=== PATIENT | female | born 1990 | race Caucasian/White ===

== ENCOUNTER 2017-05-19 06:00 | Inpatient (IN) | payer BC ==
[2017-05-19] MEDS ORDERED: OXYTOCIN 10 UNIT/ML 1 ML VIAL IM PRN (06:18)
[2017-05-19] MEDS ORDERED: METHYLERGONOVINE 0.2 MG/ML 1 ML AMP IM PRN (06:18)
[2017-05-19] MEDS ORDERED: CARBOPROST TROMETHAMINE 250 MCG/ML 1 ML AMP IM PRN (06:18)
[2017-05-19] MEDS ORDERED: LIDOCAINE 1% (PF) 10 MG/ML (30 ML SDV) SQ PRN (06:18)
[2017-05-19] MEDS ORDERED: TERBUTALINE 1 MG/ML VIAL SQ PRN (06:18)
[2017-05-19] MEDS ORDERED: OXYTOCIN 20 UNITS/1000 ML NS 1,000 ML IV SCH (06:30)
[2017-05-19] MEDS ORDERED: LACTATED RINGERS 1,000 ML IV SCH (06:30)
[2017-05-19 06:40] LABS: Basophils % (A) 0 %; CHCM 34.8; Eosinophils # (A) 0.2 k/uL (0-0.7); Eosinophils % (A) 3 %; HCT 37.9 % (34.0-46.0); HDW 2.85; Luc # (Auto) 0.16; Luc % (Auto) 3; Lymphocytes # (A) 1.7 k/uL (1.0-4.8); Lymphocytes % (A) 27 %; MCH 31.8 pg (25.0-35.0); MCHC 34.4 g/dL (31.0-37.0); MCV 92.5 fL (80.0-100.0); Mean Platelet Volume 8.3; Monocytes # (A) 0.5 k/uL (0-1.0); Monocytes % (A) 8 %; Neutrophils # (A) 3.8 k/uL (1.3-7.7); Neutrophils % (A) 59 %; RBC 4.09 m/uL (3.80-5.40); RDW 14.6 % (11.5-15.5); WBC 6.4 k/uL (3.8-10.6); WBC (Perox) 6.24
--- NOTE | 2017-05-19 07:20 | P.HPOB ---
History of Present Illness H&P Date: 05/19/17 This is a 26 rolled white female 1 para 0 EDC 05/26/2017 at 39 weeks gestation. Patient presents this morning for induction, for prolonged latent phase labor and favorable cervix. Fetus is been active throughout the . She denies vaginal bleeding or fluid leakage. history significant for blood type O-, broke and received. Pap smear, VDRL testing, urine culture, could be strep cultures, hepatitis B surface antigen, HIV testing all negative. One-hour Glucola 142, 3 hour GTT within normal limits. Social history: Patient is , she is a nonsmoker, she denies alcohol or drug use. Past surgical history is significant for elbow surgery of the right elbow 2011, appendectomy 2011, foot surgery 2013, laparoscopy 4 for endometriosis reduction. Past medical history is significant for endometriosis and asthma. Current medications vitamins daily. ALLERGIES none known, no environmental or food ALLERGIES. On exam this is a pleasant white female, 5 foot 5 inches, 156 pounds, vital signs are stable and patient is afebrile including a blood pressure 127/81. The general physical exam is within normal limits. The chest is clear in all harkins. Extremities reveal no edema. heart rate is in the 140s with frequent accelerations, consistent with reactive NST. Patient is having mild spontaneous contractions approximately every 3-5 minutes apart. Impression: 39 week intrauterine . History of prolonged latent phase labor with favorable cervix, here for induction. Plan: Oxytocin per hospital protocol. Close maternal and surveillance. Anticipating normal spontaneous vaginal delivery. Review of Systems Negative except as in HPI Past Medical History Past Medical History: Asthma Additional Past Medical History / Comment(s): Endometriosis History of Any Multi-Drug Resistant Organisms: None Reported Smoking Status: Never smoker Medications and Allergies Home Medications Medication Instructions Recorded Confirmed Type Pnv,Calcium 72/Iron/Folic Acid 1 tab PO DAILY 05/19/17 05/19/17 History [ Plus Tablet] Allergies Allergy/AdvReac Type Severity Reaction Status Date / Time No Known Allergies Allergy Verified 05/19/17 06:18 Exam - Vital Signs Vital signs: Intake and Output 05/18/17 05/19/17 05/19/17 22:59 06:59 14:59 Other: Weight 70.76 kg See dictation under HPI, please. Results Result Diagrams: 07/21/17 06:30 Assessment and Plan Plan: Oxytocin per hospital protocol. Analgesic options reviewed with the patient. Close maternal and surveillance. Anticipate normal spontaneous vaginal delivery. Time with Patient: Less than 30
[2017-05-19] MEDS: BUTORPHANOL 1 MG/ML 1 ML VIAL IV PRN ×2 (10:33→12:22)
[2017-05-19] MEDS ORDERED: LANOLIN CREAM 5 GM TUBE TOPICAL PRN (14:02)
[2017-05-19] MEDS ORDERED: BENZOCAINE/MENTHOL SPRAY 1 GM/SPRAY AEROSOL TOPICAL PRN (14:02)
[2017-05-19] MEDS ORDERED: diphenhydrAMINE 50 MG/ML 1 ML VIAL IVP PRN ×2 (14:02)
[2017-05-19] MEDS ORDERED: diphenhydrAMINE 25 MG CAP PO PRN (14:02)
[2017-05-19] MEDS ORDERED: ZOLPIDEM 5 MG TAB PO PRN (14:02)
[2017-05-19] MEDS ORDERED: ACETAMINOPHEN TAB 325 MG TAB PO PRN (14:02)
[2017-05-19] MEDS ORDERED: diphenhydrAMINE 50 MG CAP PO PRN (14:02)
[2017-05-19] MEDS ORDERED: HYDROCORTISONE 2.5% RECTAL CREAM 30 GM TUBE RECTAL PRN (14:02)
[2017-05-19] MEDS ORDERED: SIMETHICONE 80 MG CHEWABLE PO PRN (14:02)
[2017-05-19] MEDS ORDERED: WITCH HAZEL 1 EACH MED..PAD TOPICAL PRN (14:02)
--- NOTE | 2017-05-19 14:02 | P.PROBDLV ---
Vaginal Delivery Note - . Vaginal Delivery Note: pre op DX IUP @ 39 0/7 weeks Post op dx: same + of viable male infant at 13:37, apgars 9, 9 at 1 and 5 mins respectively. darlin frank terminal bradycardia Procedure: pitocin induction of labor amniotomy midline episotomy without extension Surgeon: Dr Iverson Assist: none Anesthesia: local with repair EBL: < 500cc Findings male delivered, apgars 9, and 9 at 1 and 5 mins. placenta delivered spontaneously without difficulty. midline 2nd degree episotomy without extension repaired. placenta discarded complications: none mother and stable
[2017-05-19] MEDS: IBUPROFEN 600 MG TAB PO PRN (14:58)
[2017-05-19 15:26] VITALS: BMI 26.1
[2017-05-19] MEDS: SENNOSIDES-DOCUSATE SODIUM 1 EACH TAB PO SCH (20:02)
[2017-05-20] MEDS ORDERED: Rhogam IMMUNE GLOBULIN 1,500 UNIT/1 ML IM ONE (02:23)
[2017-05-20] MEDS: IBUPROFEN 600 MG TAB PO PRN ×2 (03:38→12:54)
--- NOTE | 2017-05-20 07:21 | P.PNOBGVD ---
Subjective - Subjective Principal diagnosis: s/p viable male Interval history: Antonia is seen this morning and doing well she is status post normal spontaneous vaginal delivery. States she has been ambulating and voiding without difficulty lochia is moderate in nature and she is breast-feeding. He states her pain is well-controlled with oral Tylenol. she denies nausea vomiting and is tolerating regular diet. Patient reports: Reports appetite normal, Reports voiding normally, Reports pain well controlled, Reports ambulating normally Sims: doing well Objective - Latest Vital Signs Latest vital signs: Vital Signs Temp Pulse Resp BP Pulse Ox 05/20/17 04:00 98.3 F 98 16 112/79 05/20/17 00:00 98.1 F 86 16 116/75 97 05/19/17 20:00 98.7 F 89 16 125/70 05/19/17 16:00 80 16 120/70 05/19/17 15:27 77 14 114/67 05/19/17 14:57 82 16 125/74 05/19/17 14:42 100 14 121/61 05/19/17 14:27 100 14 124/59 05/19/17 14:12 95 16 127/66 05/19/17 13:57 97.3 F L 84 16 126/86 Intake and Output 05/19/17 05/20/17 05/20/17 22:59 06:59 14:59 Intake Total 1000 Balance 1000 Intake: IV 1000 Lactated Ringers 1,000 ml 1000 @ 125 mls/hr IV .Q8H [facility] Rx#:[id number] Other: # Voids 1 Assessment and Plan (1) care and examination immediately after delivery Narrative/Plan: Carla is doing well on day 1 anticipate discharge, later today. Current Visit: Yes Status: Acute Code(s): Z39.0 - ENCNTR FOR CARE AND EXAM OF MOTHER IMMEDIATELY AFTER DEL SNOMED Code(s): 562731536
--- NOTE | 2017-05-20 07:29 | P.DS ---
Providers Date of admission: 05/19/17 06:05 Expected date of discharge: 05/20/17 Attending physician: Charlotte Moralez Primary care physician: Stated None - Discharge Diagnosis(es) (1) care and examination immediately after delivery This is a 26-year-old 1 now para 1 that presented to labor and delivery yesterday for elective induction of labor secondary to extended latent phase and favorable cervix. She was admitted to labor and delivery amniotomy was performed along with Pitocin augmentation of labor. She progressed through labor and eventually becoming complete pushing with delivery of viable male infant, darlin marie at 13:39. 2nd degree midline episotomy Patient is doing well on day #1 and was is without complaints and wishing to be discharged home. Current Visit: Yes Status: Acute Hospital Course: Carla is a 26-year-old 1 para 1 presented to labor and delivery yesterday for elective induction of labor. She had rupture of membranes on admission along with Pitocin augmentation of labor. she progressed through labor well and was and had a spontaneous vaginal delivery of a viable male infant at 1339 Plan - Discharge Summary New Discharge Prescriptions: No Action Pnv,Calcium 72/Iron/Folic Acid [ Plus Tablet] 1 tab PO DAILY Discharge Medication List Pnv,Calcium 72/Iron/Folic Acid [ Plus Tablet] 1 tab PO DAILY 05/19/17 [ History] Follow up Appointment(s)/Referral(s): Charlotte Moralez MD [STAFF PHYSICIAN] - 1 Week Discharge Disposition: HOME SELF-CARE
[2017-05-20 08:03] LABS: Basophils % (A) 0 %; CH 31.7; CHCM 33.8; Eosinophils # (A) 0.2 k/uL (0-0.7); Eosinophils % (A) 2 %; HCT 33.2 % (34.0-46.0); HDW 2.81; HGB 11.5 gm/dL (11.4-16.0); Luc # (Auto) 0.16; Luc % (Auto) 2; Lymphocytes # (A) 1.5 k/uL (1.0-4.8); Lymphocytes % (A) 16 %; MCH 32.6 pg (25.0-35.0); MCHC 34.5 g/dL (31.0-37.0); MCV 94.4 fL (80.0-100.0); Mean Platelet Volume 8.7; Monocytes # (A) 0.5 k/uL (0-1.0); Monocytes % (A) 5 %; Neutrophils # (A) 7.3 k/uL (1.3-7.7); Neutrophils % (A) 76 %; RBC 3.52 m/uL (3.80-5.40); RDW 14.5 % (11.5-15.5); WBC 9.6 k/uL (3.8-10.6); WBC (Perox) 9.79
[2017-05-20 10:43] VITALS: BP 121/67; PULSE 71; RESP 18; TEMP 97.2
[2017-05-20] MEDS: SENNOSIDES-DOCUSATE SODIUM 1 EACH TAB PO SCH (10:44)
== END 2017-05-20 15:34 | disposition home or self-care (01) | DRG 775 ==
LOC: 4FBP 06:05
PROVIDERS: ADMIT Obstetrics & Gynecology; ATTEND Obstetrics & Gynecology
PROC: 10E0XZZ Delivery of Products of Conception, External Approach (ICD-10-PCS; principal; 2017-05-19)
PROC: 3E033VJ Introduction of Other Hormone into Peripheral Vein, Percutaneous Approach (ICD-10-PCS; 2017-05-19)
PROC: 10907ZC Drainage of Amniotic Fluid, Therapeutic from Products of Conception, Via Natural or Artificial Opening (ICD-10-PCS; 2017-05-19)
PROC: 0W8NXZZ Division of Female Perineum, External Approach (ICD-10-PCS; 2017-05-19)
DX: O63.0 Prolonged first stage (of labor) (principal); J45.909 Unspecified asthma, uncomplicated; Z37.0 Single live birth; O99.52 Diseases of the respiratory system complicating childbirth; Z3A.39 39 weeks gestation of pregnancy
CPT/HCPCS: 85025; 85461

== ENCOUNTER 2018-04-29 15:35 | Outpatient (CLI) | payer BC ==
[2018-04-29 16:05] VITALS: BP 131/78; PULSE 95; RESP 17; TEMP 97.7
[2018-04-29] MEDS ORDERED: LACTATED RINGERS 1,000 ML IV ONE (16:45)
[2018-04-29 16:48] LABS: Appearance,Urine Clear (Clear); Bacteria,Urine Many /hpf; Bilirubin,Urine Negative (Negative); Blood,Urine Negative (Negative); Color,Urine Yellow; Glucose,Urine (UA) Negative (Negative); Ketones,Urine Trace (Negative); Leukocyte Esterase,Urine Small (Negative); Mucus,Urine Moderate /hpf; Nitrite,Urine Negative (Negative); PH, Urine 6.5 (5.0-8.0); Protein,Urine Trace (Negative); RBC,Urine 1 /hpf (0-5); Specific Gravity,Urine 1.018 (1.001-1.035); Squamous Epithelial Cell,Urine 2 /hpf (0-4); WBC,Urine 2 /hpf (0-5)
[2018-04-29 16:58] LABS: Glucose,Whole Blood 101 mg/dL (75-99)
--- NOTE | 2018-06-02 12:33 | P.MSEPDOC ---
Presenting Problems - Arrival Data Date of Arrival on Unit: 04/29/18 Time of Arrival on Unit: 15:35 Mode of Transport: Ambulatory - Complaint OB-Reason for Admission/Chief Complaint: Other Comment: pt here with c/o dizziness/cramping/pelvic pressure/nausea since 0800, pt denies emesis and reports a that dizziness has resolved, reports cramping as occasional, denies lof/vb Medical History - Information : 2 Para: 1 Term: 1 : 0 Abortions: Spontaneous or Elective: 0 Number of Living Children: 1 - Gestational Age Gestational Age by TREVER (wks/days): 35 Weeks and 3 Days - History Complications: GDM Comment: diet controlled, accu check was 93 prior to coming into hospital Review of Systems - Review of Systems Constitutional: No problems Breast: No problems ENT: No problems Cardiovascular: No problems Respiratory: No problems Gastrointestinal: No problems Musculoskeletal: No problems Neurological: No problems Skin: No problems Vital Signs - Temperature Temperature: 97.7 F Temperature Source: Temporal Artery Scan - Pulse Right Brachial Pulse Rate: 95 Pulse Assessment Method: Automatic Cuff - Respirations Respiratory Rate: 17 Oxygen Delivery Method: Room Air O2 Sat by Pulse Oximetry: 98 - Blood Pressure Right Arm Blood Pressure: 131/78 Blood Pressure Mean: 95 Blood Pressure Source: Automatic Cuff Medical Screen Scoring (Pre) - Uterine Contractions Frequency: > 5 minutes apart = 1 Duration: > 40 seconds = 2 Intensity: N/A - Maternal Vital Signs Maternal Temperature: N/A Maternal Blood Pressure: N/A Signs of Preeclampsia: N/A Maternal Respirations: N/A - Pain Assessment Pain Location and Character: Lower, Abdomen Pain Scale Used: Numeric (1 - 10) Pain Intensity: 5 Pain Management Goal: 3 Pain Description: *Acute, Cramping Pain Radiation Location: none Pain Frequency: Intermittent Pain Duration: 8 Pain Duration Units: Hours Pain Behavior: None Exhibited Pain Aggravating Factors: Position - Maternal Trauma Maternal Trauma: N/A - Assessment Baseline FHR: 135 Heart Rate - NICHD Category: Category I (Normal) = 0 NST: Reactive Position: N/A Station: N/A - Total Score Total Score (Pre): 3 Physician Notification (Pre) - Physician Notified Physician Notified Date: 04/29/18 Physician Notified Time: 16:15 Physician/Practitioner Notifed:: Dr Guaman Spoke With: Dr Guaman New Order Received: Yes (send u/a) Medical Screen Scoring (Post) - Uterine Contractions Frequency: > 5 minutes apart = 1 Duration: > 40 seconds = 2 Intensity: N/A - Maternal Vital Signs Maternal Temperature: N/A Maternal Blood Pressure: N/A Signs of Preeclampsia: N/A Maternal Respirations: N/A - Pain Assessment Pain Location and Character: Abdomen Pain Scale Used: Numeric (1 - 10) Pain Intensity: 2 Pain Management Goal: 3 Pain Description: *Acute, Aching Pain Radiation Location: none Pain Frequency: Intermittent Pain Behavior: None Exhibited Pain Aggravating Factors: None - Maternal Trauma Maternal Trauma: N/A - Assessment Heart Rate: 135 Heart Rate - NICHD Category: Category I (Normal) = 0 NST: Reactive Position: N/A Station: N/A - Total Score Total Score (Post): 3 - Post Treatment Level of Risk Post Treatment Level of Risk: Low (0-5) Physician Notification (Post) - Physician Notified New Order Received: Yes (dc home) Disposition - Disposition OB Disposition: Discharge to home, Written follow up instructions reviewed Discharge Date: 04/29/18 Discharge Time: 17:51 I agree with the RN Medical Screening Exam: Yes Risk & Benefit of care provided described in d/c instruction: Yes Diagnosis: RELATED CONDITIONS, UNSPECIFIED, THIRD TRIMESTER
== END 2018-04-29 17:52 | disposition home or self-care (01) ==
LOC: FBPOP 15:35
PROVIDERS: ATTEND Obstetrics & Gynecology
DX: O26.93 Pregnancy related conditions, unspecified, third trimester (principal); Z3A.35 35 weeks gestation of pregnancy
CPT/HCPCS: 59025; 81001; 96360; 99214

== ENCOUNTER 2018-05-10 09:02 | Outpatient (CLI) | payer BC ==
[2018-05-10 09:18] VITALS: PULSE 89; RESP 17; TEMP 98
[2018-05-10 10:17] LABS: Glucose,Whole Blood 96 mg/dL (75-99)
[2018-05-10 11:05] VITALS: BP 121/75
--- NOTE | 2018-05-29 12:36 | P.MSEPDOC ---
Presenting Problems - Arrival Data Date of Arrival on Unit: 05/10/18 Time of Arrival on Unit: 09:02 Mode of Transport: Ambulatory - Complaint OB-Reason for Admission/Chief Complaint: Possible Onset of Labor Comment: pt started to feel contractions around 0200 today, denies lof/vb Medical History - Information : 2 Para: 1 Term: 1 : 0 Abortions: Spontaneous or Elective: 0 Number of Living Children: 1 - Gestational Age Gestational Age by TREVER (wks/days): 37 Weeks and 0 Days - History Complications: GDM Comment: accucheck 96 Review of Systems - Review of Systems Constitutional: No problems Breast: No problems ENT: No problems Cardiovascular: No problems Respiratory: No problems Gastrointestinal: No problems Genitourinary: No problems Musculoskeletal: No problems Neurological: No problems Skin: No problems Vital Signs - Temperature Temperature: 98.0 F Temperature Source: Oral - Pulse Right Brachial Pulse Rate: 89 Pulse Assessment Method: Automatic Cuff - Respirations Respiratory Rate: 17 Oxygen Delivery Method: Room Air O2 Sat by Pulse Oximetry: 98 - Blood Pressure Right Arm Blood Pressure: 121/75 Blood Pressure Mean: 90 Blood Pressure Source: Automatic Cuff Medical Screen Scoring (Pre) - Cervical Exam Dilation: 1-3 cm = 1 Effacement: Exam Deferred Membranes: Intact - Uterine Contractions Frequency: > 5 minutes apart = 1 Duration: > 40 seconds = 2 Intensity: N/A - Maternal Vital Signs Maternal Temperature: N/A Maternal Blood Pressure: N/A Signs of Preeclampsia: N/A Maternal Respirations: N/A - Pain Assessment Pain Location and Character: Abdomen Pain Scale Used: Numeric (1 - 10) Pain Intensity: 6 Pain Management Goal: 3 Pain Description: *Acute, Cramping Pain Radiation Location: none Pain Frequency: Intermittent Pain Duration: 5 Pain Duration Units: Hours Pain Behavior: None Exhibited Pain Aggravating Factors: Contractions - Maternal Trauma Maternal Trauma: N/A - Assessment Baseline FHR: 140 Heart Rate - NICHD Category: Category I (Normal) = 0 NST: Reactive Position: N/A Station: N/A - Total Score Total Score (Pre): 4 - Level of Risk Level of Risk: Low (0-5) Physician Notification (Pre) - Physician Notified Physician Notified Date: 05/10/18 Physician Notified Time: 10:47 Physician/Practitioner Notifed:: Dr Moralez Spoke With: Dr Moralez New Order Received: Yes (dc home) - Notification Comment Comment: pt has appt with dr moralez today at 3 pm Disposition - Disposition OB Disposition: Discharge to home, Written follow up instructions reviewed Discharge Date: 05/10/18 Discharge Time: 10:55 I agree with the RN Medical Screening Exam: Yes Risk & Benefit of care provided described in d/c instruction: Yes Diagnosis: RELATED CONDITIONS, UNSPECIFIED, THIRD TRIMESTER
== END 2018-05-10 10:55 | disposition home or self-care (01) ==
LOC: FBPOP 09:02
PROVIDERS: ATTEND Obstetrics & Gynecology
DX: O26.93 Pregnancy related conditions, unspecified, third trimester (principal); Z3A.37 37 weeks gestation of pregnancy
CPT/HCPCS: 59025; 99213

== ENCOUNTER 2018-05-14 00:50 | Outpatient (CLI) | payer BC ==
[2018-05-14 01:16] VITALS: BP 132/79; PULSE 88; RESP 16; TEMP 97.1
--- NOTE | 2018-06-25 11:46 | P.MSEPDOC ---
Presenting Problems - Arrival Data Date of Arrival on Unit: 05/14/18 Time of Arrival on Unit: 00:55 Mode of Transport: Wheelchair - Complaint OB-Reason for Admission/Chief Complaint: Possible Onset of Labor Medical History - Information : 2 Para: 1 - Gestational Age Gestational Age by TREVER (wks/days): 37 Weeks and 4 Days Review of Systems - Review of Systems Constitutional: No problems Breast: No problems ENT: No problems Cardiovascular: No problems Respiratory: No problems Gastrointestinal: No problems Genitourinary: No problems Musculoskeletal: No problems Neurological: No problems Skin: No problems Vital Signs - Temperature Temperature: 97.1 F Temperature Source: Temporal Artery Scan - Pulse Right Sitting Brachial Pulse Rate: 88 Pulse Assessment Method: Automatic Cuff - Respirations Respiratory Rate: 16 Oxygen Delivery Method: Room Air O2 Sat by Pulse Oximetry: 99 - Blood Pressure Right Arm Sitting Blood Pressure: 132/79 Blood Pressure Mean: 96 Blood Pressure Source: Automatic Cuff Medical Screen Scoring (Pre) - Cervical Exam Dilation: 1-3 cm = 1 Effacement: More than 50% = 2 Membranes: Intact - Uterine Contractions Frequency: > or = 36 weeks =2 Duration: N/A Intensity: N/A - Maternal Vital Signs Maternal Temperature: N/A Maternal Blood Pressure: N/A Signs of Preeclampsia: N/A Maternal Respirations: N/A - Pain Assessment Pain Location and Character: Abdomen Pain Scale Used: Numeric (1 - 10) Pain Intensity: 6 Pain Management Goal: 0 Pain Description: Cramping Pain Radiation Location: 0 Pain Frequency: Intermittent Pain Duration: 3 Pain Duration Units: Hours Pain Behavior: None Exhibited Effects of Pain: 0 Pain Aggravating Factors: None - Maternal Trauma Maternal Trauma: N/A - Assessment Baseline FHR: 150 Heart Rate - NICHD Category: Category I (Normal) = 0 NST: Reactive Position: N/A Station: N/A - Total Score Total Score (Pre): 5 - Level of Risk Level of Risk: Medium (6-9) Physician Notification (Pre) - Physician Notified Physician Notified Date: 05/14/18 Physician Notified Time: 02:24 Physician/Practitioner Notifed:: dr manuel New Order Received: Yes - Notification Comment Comment: discharge pt home with labor instructions, pt to f/u with dr hanson this afternoon at her scheduled appt. Disposition - Disposition OB Disposition: Discharge to home Discharge Date: 05/14/18 Discharge Time: 02:30 I agree with the RN Medical Screening Exam: Yes Risk & Benefit of care provided described in d/c instruction: Yes Diagnosis: FALSE LABOR AT OR AFTER 37 COMPLETED WEEKS OF GESTATION
== END 2018-05-14 02:30 | disposition home or self-care (01) ==
LOC: FBPOP 00:50
PROVIDERS: ATTEND Obstetrics & Gynecology
DX: O47.1 False labor at or after 37 completed weeks of gestation (principal); Z3A.37 37 weeks gestation of pregnancy
CPT/HCPCS: 59025; 99213

== ENCOUNTER 2018-05-26 00:50 | Outpatient (CLI) | payer BC, OTHER ==
[2018-05-26 01:09] VITALS: BP 133/92; PULSE 91; RESP 16; TEMP 97
--- NOTE | 2018-05-30 19:45 | P.MSEPDOC ---
Presenting Problems - Arrival Data Date of Arrival on Unit: 05/26/18 Time of Arrival on Unit: 00:50 Mode of Transport: Ambulatory - Complaint OB-Reason for Admission/Chief Complaint: Possible Onset of Labor, Rule Out SROM Comment: Possible rupture of membranes after 2100 for clear fluid this evening. States she has been having contractions for the last week. Patient states her contractions have increased in frequency approximately 5 minutes apart Medical History - Information : 2 Para: 1 Term: 1 : 0 Abortions: Spontaneous or Elective: 0 Number of Living Children: 1 - Gestational Age Gestational Age by TREVER (wks/days): 39 Weeks and 2 Days Review of Systems - Review of Systems Constitutional: No problems Breast: No problems ENT: No problems Cardiovascular: No problems Respiratory: No problems Gastrointestinal: No problems Genitourinary: No problems Musculoskeletal: No problems Neurological: No problems Skin: No problems Vital Signs - Temperature Temperature: 97.0 F Temperature Source: Temporal Artery Scan - Pulse Pulse Oximetery Pulse Rate: 91 Pulse Assessment Method: Pulse Oximetry - Respirations Respiratory Rate: 16 Oxygen Delivery Method: Room Air - Blood Pressure Sitting Blood Pressure: 133/92 Blood Pressure Mean: 105 Blood Pressure Source: Automatic Cuff Medical Screen Scoring (Pre) - Cervical Exam Dilation: 4-7 cm = 2 Effacement: More than 50% = 2 - Uterine Contractions Frequency: > or = 36 weeks =2 Intensity: N/A - Maternal Vital Signs Maternal Temperature: N/A Maternal Blood Pressure: N/A Signs of Preeclampsia: N/A Maternal Respirations: N/A - Pain Assessment Pain Location and Character: Abdomen Pain Scale Used: Numeric (1 - 10) Pain Intensity: 6 Pain Management Goal: 3 Pain Description: *Acute, Cramping Pain Radiation Location: 0 Pain Frequency: Intermittent Pain Duration: 60 Pain Duration Units: Minutes Pain Behavior: Vocalization Effects of Pain: 0 Pain Aggravating Factors: Activity - Maternal Trauma Maternal Trauma: N/A - Assessment Baseline FHR: 135 Heart Rate - NICHD Category: Category I (Normal) = 0 NST: Reactive Position: N/A Station: N/A - Total Score Total Score (Pre): 6 Physician Notification (Pre) - Physician Notified Physician Notified Date: 05/26/18 Physician Notified Time: 02:10 Physician/Practitioner Notifed:: Dr. Iverson New Order Received: Yes - Notification Comment Comment: Continue to evaluate patient in triage for another hour, recheck cervix and call physician with report. Called report at [phone]. Orders given to discharge patient home with instructions Disposition - Disposition OB Disposition: Discharge to home, Written follow up instructions reviewed Discharge Date: 05/26/18 Discharge Time: 03:23 I agree with the RN Medical Screening Exam: Yes Risk & Benefit of care provided described in d/c instruction: Yes Diagnosis: FALSE LABOR AT OR AFTER 37 COMPLETED WEEKS OF GESTATION
== END 2018-05-26 03:23 | disposition home or self-care (01) ==
LOC: FBPOP 00:50
PROVIDERS: ATTEND Obstetrics & Gynecology Obstetrics
DX: O47.1 False labor at or after 37 completed weeks of gestation (principal); Z3A.39 39 weeks gestation of pregnancy
CPT/HCPCS: 59025; 84112; 99213

== ENCOUNTER 2018-05-26 08:34 | Inpatient (IN) | payer BC, OTHER ==
[2018-05-26] MEDS ORDERED: TERBUTALINE 1 MG/ML VIAL SQ PRN (09:06)
[2018-05-26] MEDS ORDERED: LIDOCAINE 1% (PF) 10 MG/ML (30 ML SDV) SQ PRN (09:06)
[2018-05-26] MEDS ORDERED: CARBOPROST TROMETHAMINE 250 MCG/ML 1 ML AMP IM PRN (09:06)
[2018-05-26] MEDS ORDERED: METHYLERGONOVINE 0.2 MG/ML 1 ML AMP IM PRN (09:06)
[2018-05-26] MEDS ORDERED: OXYTOCIN 10 UNIT/ML 1 ML VIAL IM PRN (09:06)
[2018-05-26] MEDS ORDERED: LACTATED RINGERS 1,000 ML IV SCH (09:15)
[2018-05-26 09:27] VITALS: BMI 27.4
[2018-05-26 09:43] LABS: Basophils % (A) 0 %; Eosinophils # (A) 0.1 k/uL (0-0.7); Eosinophils % (A) 1 %; HCT 38.6 % (34.0-46.0); HGB 12.9 gm/dL (11.4-16.0); Lymphocytes # (A) 1.3 k/uL (1.0-4.8); Lymphocytes % (A) 18 %; MCH 30.2 pg (25.0-35.0); MCHC 33.5 g/dL (31.0-37.0); MCV 90.1 fL (80.0-100.0); Mean Platelet Volume 7.3; Monocytes # (A) 0.4 k/uL (0-1.0); Monocytes % (A) 6 %; Neutrophils # (A) 5.3 k/uL (1.3-7.7); Neutrophils % (A) 72 %; Platelet Count 182 k/uL (150-450); RBC 4.29 m/uL (3.80-5.40); RDW 13.7 % (11.5-15.5); WBC 7.4 k/uL (3.8-10.6)
[2018-05-26] MEDS ORDERED: diphenhydrAMINE 50 MG/ML 1 ML VIAL IVP PRN ×2 (14:18)
[2018-05-26] MEDS ORDERED: BENZOCAINE/MENTHOL SPRAY 1 GM/SPRAY AEROSOL TOPICAL PRN (14:18)
[2018-05-26] MEDS ORDERED: HYDROCORTISONE 2.5% RECTAL CREAM 30 GM TUBE RECTAL PRN (14:18)
[2018-05-26] MEDS ORDERED: diphenhydrAMINE 50 MG CAP PO PRN (14:18)
[2018-05-26] MEDS ORDERED: LANOLIN CREAM 5 GM TUBE TOPICAL PRN (14:18)
[2018-05-26] MEDS ORDERED: SIMETHICONE 80 MG CHEWABLE PO PRN (14:18)
[2018-05-26] MEDS ORDERED: ACETAMINOPHEN TAB 325 MG TAB PO PRN (14:18)
[2018-05-26] MEDS ORDERED: diphenhydrAMINE 25 MG CAP PO PRN (14:18)
[2018-05-26] MEDS ORDERED: ZOLPIDEM 5 MG TAB PO PRN (14:18)
[2018-05-26] MEDS ORDERED: WITCH HAZEL 1 EACH MED..PAD TOPICAL PRN (14:18)
--- NOTE | 2018-05-26 14:24 | P.HPOB ---
History of Present Illness H&P Date: 05/26/18 Chief Complaint: IUP at 39-2/7 weeks, active labor This is a 27-year-old 001 at 39-2/7 weeks with an estimated due date of 82. Patient has been spent receiving routine care with Dr. Mary. She does have a short ICS she delivered just over a year ago a viable male . Patient presents today with complaints of contractions every 2-5 minutes getting stronger nature. Patient on initial exam was 4-5 cm dilated. On initial labs she is blood type of O-, rubella immune, hepatitis B surface antigen negative, HIV negative, RPR nonreactive, GBS negative. Patient denied vaginal bleeding or loss of fluid on initial physical exam. Review of Systems Constitutional: Reports fatigue, Denies chills, Denies fever Cardiovascular: Reports edema Respiratory: Denies cough Gastrointestinal: Denies constipation, Denies diarrhea Genitourinary: Reports Past Medical History Past Medical History: Asthma Additional Past Medical History / Comment(s): Endometriosis History of Any Multi-Drug Resistant Organisms: MRSA Date of last positivie culture/infection: 2006 MDRO Source:: nose Additional Past Surgical History / Comment(s): ankle surgery, lap surgery for endomitritis, elbow surgery, appendectomy Past Anesthesia/Blood Transfusion Reactions: No Reported Reaction Past Psychological History: No Psychological Hx Reported Smoking Status: Never smoker Past Alcohol Use History: None Reported Past Drug Use History: None Reported - Past Family History Mother Family Medical History: Diabetes Mellitus Medications and Allergies Home Medications Medication Instructions Recorded Confirmed Type Pnv,Calcium 72/Iron/Folic Acid 1 tab PO DAILY 05/19/17 05/26/18 History [ Plus Tablet] Escitalopram [Lexapro] 10 mg PO DAILY 04/23/18 05/26/18 History Allergies Allergy/AdvReac Type Severity Reaction Status Date / Time No Known Allergies Allergy Verified 05/26/18 09:06 Exam Osteopathic Statement: *. No significant issues noted on an osteopathic structural exam other than those noted in the History and Physical/Consult. Vital Signs Temp Pulse Resp BP 05/26/18 09:22 96.6 F L 91 16 128/82 Intake and Output 05/25/18 05/26/18 05/26/18 22:59 06:59 14:59 Other: # Voids 1 Weight 74.843 kg - OBG Physical Exam Abdomen: Gravid Cervix: 4-5/80/-3 Uterus: enlarged (Appropriate for gestational age) Results Result Diagrams: 05/26/18 09:08 Assessment and Plan (1) Term Current Visit: Yes Status: Acute Code(s): Z34.80 - ENCOUNTER FOR SUPRVSN OF NORMAL , UNSP TRIMESTER SNOMED Code(s): 00719702 (2) Active labor Current Visit: Yes Status: Acute Code(s): FIW2332 - SNOMED Code(s): 17751021 Plan: We'll admit to labor and delivery for active labor. Amniotomy when appropriate. Patient declines analgesia for labor. Options are reviewed questions are answered anticipate spontaneous vaginal delivery later today
--- NOTE | 2018-05-26 14:28 | P.PROBDLV ---
Vaginal Delivery Note - . Vaginal Delivery Note: This is a very pleasant 27-year-old 2 para 1001 at 39-2/7 weeks that presented to labor and delivery with complaints of contractions every 2-5 minutes. On initial physical exam she was 4-5 cm dilated and was admitted to labor and delivery. Patient stated contractions were getting stronger in nature , amniotomy was performed and thin meconium fluid was noted. Patient progressed through labor becoming complete and started pushing. Patient had a normal spontaneous vaginal delivery of a viable female at 1356, weight of 8 lbs. 2 oz., Apgars of 9 and 9 at one and 5 minutes respectively. A spontaneous cry at delivery was noted Afterwards cord blood was obtained. The cord was then doubly clamped and cut and delivered spontaneously intact with a three-vessel cord. On inspection of the patient's vaginal vault a first- degree vaginal laceration was noted, this was repaired in the usual fashion with 3-0 Rapide. The uterus was noted to be firm and below the umbilicus at this time. rectal exam was preformed and normal in nature. Estimated blood loss 300 mL. Rectal exam was performed and normal in nature. Mother and infant tolerated delivery well and are resting comfortably
[2018-05-26] MEDS: IBUPROFEN 600 MG TAB PO PRN ×2 (14:29→21:01)
[2018-05-26] MEDS ORDERED: OXYTOCIN 20 UNITS/1000 ML NS 1,000 ML IV SCH (14:30)
[2018-05-26 18:16] LABS: Hemoglobin A1C 5.2 % (4.0-6.0)
[2018-05-26] MEDS ORDERED: Rhogam IMMUNE GLOBULIN 1,500 UNIT/1 ML IM ONE (21:00)
[2018-05-26] MEDS: SENNOSIDES-DOCUSATE SODIUM 1 EACH TAB PO SCH (21:01)
[2018-05-27 00:09] VITALS: RESP 16; TEMP 98.3
[2018-05-27 08:08] LABS: Basophils % (A) 0 %; Eosinophils # (A) 0.2 k/uL (0-0.7); Eosinophils % (A) 3 %; HCT 32.7 % (34.0-46.0); HGB 10.7 gm/dL (11.4-16.0); Lymphocytes # (A) 1.4 k/uL (1.0-4.8); Lymphocytes % (A) 17 %; MCH 29.3 pg (25.0-35.0); MCHC 32.7 g/dL (31.0-37.0); MCV 89.6 fL (80.0-100.0); Monocytes # (A) 0.4 k/uL (0-1.0); Monocytes % (A) 6 %; Neutrophils # (A) 5.8 k/uL (1.3-7.7); Neutrophils % (A) 73 %; Platelet Count 170 k/uL (150-450); RBC 3.65 m/uL (3.80-5.40); RDW 13.6 % (11.5-15.5)
[2018-05-27 08:37] VITALS: BP 127/82; PULSE 84
[2018-05-27] MEDS: SENNOSIDES-DOCUSATE SODIUM 1 EACH TAB PO SCH (08:41)
[2018-05-27] MEDS ORDERED: ESCITALOPRAM 10 MG TAB PO SCH (09:00)
[2018-05-27] MEDS ORDERED: NON-FORMULARY DRUG (Pnv,Calcium 72/Iron/Folic Acid [Prenatal Plus Tablet] 1 TAB) PO SCH (09:00)
--- NOTE | 2018-05-27 10:37 | P.PNOBGVD ---
Subjective - Subjective Principal diagnosis: PPD 1 Interval history: Patient has done well overnight. She states her pain is well-controlled. She is ambulating and voiding without difficulty. She is tolerating regular diet without nausea or vomiting. She states her lochia is minimal. She is pumping at this time, as the was taken to the nursery last night for breathing difficulties. is doing well this morning but on IV fluids. Patient reports: Reports appetite normal, Reports voiding normally, Reports pain well controlled, Reports ambulating normally : doing well (In the nursery on IV fluids) Objective - Latest Vital Signs Latest vital signs: Vital Signs Temp Pulse Resp BP 05/27/18 08:00 98.3 F 84 16 127/82 05/27/18 00:00 98.3 F 103 H 16 137/67 05/26/18 20:00 98.1 F 42 L 18 120/90 05/26/18 16:16 97.0 F L 93 14 131/81 05/26/18 15:46 96 16 141/72 05/26/18 15:16 107 H 16 141/85 05/26/18 15:01 84 16 115/69 05/26/18 14:46 96.7 F L 102 H 16 115/56 05/26/18 14:31 83 16 128/62 05/26/18 14:16 97.2 F L 72 16 124/79 Intake and Output 05/26/18 05/27/18 05/27/18 22:59 06:59 14:59 Other: # Voids 1 1 2 - Exam Extremities: Present: normal Abdomen: Present: normal appearance, soft Uterus: Present: firm - Labs Labs: Abnormal Lab Results - Last 24 Hours (Table) 05/27/18 Range/Units 07:59 RBC 3.65 L (3.80-5.40) m/uL Hgb 10.7 L (11.4-16.0) gm/dL Hct 32.7 L (34.0-46.0) % Assessment and Plan (1) Term Current Visit: Yes Status: Acute Code(s): Z34.80 - ENCOUNTER FOR SUPRVSN OF NORMAL , UNSP TRIMESTER SNOMED Code(s): 28489424 (2) Active labor Current Visit: Yes Status: Acute Code(s): HYP4148 - SNOMED Code(s): 03073046 Plan: We'll continue routine care, anticipate discharge home tomorrow
[2018-05-27] MEDS ORDERED: PRENATAL VIT-IRON-FOLIC ACID 1 EACH CAP PO SCH (11:45)
--- NOTE | 2018-05-27 15:52 | P.DS ---
Providers Date of admission: 05/26/18 08:48 Expected date of discharge: 05/27/18 Attending physician: Charlotte Moralez - Discharge Diagnosis(es) (1) Term Current Visit: Yes Status: Acute (2) Active labor Current Visit: Yes Status: Acute (3) Status post normal vaginal delivery Current Visit: Yes Status: Acute Hospital Course: This is a 27-year-old G2 now P2 that presented to labor and delivery with complaints of regular painful contractions. she denies VB, LOF she was admitted to labor and delivery, and amniotomy was preformed which noted thin meconium fluid. she progressed to complete and began pushing, and had a normal spontaneous vaginal delivery of a viable female infant weight of 8 lbs. 2 oz. at 1356, Apgars of 9 and 9 at one and 5 minutes respectively. she has done well , and though baby did well initially but had noted tachypnea and was taken to the nursery. A murmur was noted by pediatrics and a echo was ordered. Coarctation of the aorta was diagnosed and the [facility] Next With this new information on decided she wished to be discharged Valadez her she could be with her . She denies pain at this time, she is ambulating and voiding without difficulty. She states her lochia is moderate in nature. She is pumping as the baby has been in the nursery. Patient Condition at Discharge: Good Plan - Discharge Summary New Discharge Prescriptions: No Action Pnv,Calcium 72/Iron/Folic Acid [ Plus Tablet] 1 tab PO DAILY Escitalopram [Lexapro] 10 mg PO DAILY Discharge Medication List Pnv,Calcium 72/Iron/Folic Acid [ Plus Tablet] 1 tab PO DAILY 05/19/17 [ History] Escitalopram [Lexapro] 10 mg PO DAILY 04/23/18 [History] Follow up Appointment(s)/Referral(s): Charlotte Moralez MD [STAFF PHYSICIAN] - 1 Week Patient Instructions/Handouts: Vaginal Delivery (DC), Vaginal Delivery (GEN) Discharge Disposition: HOME SELF-CARE
== END 2018-05-27 15:30 | disposition home or self-care (01) | DRG 775 ==
LOC: FBPOP 08:34 → 4FBP 08:48
PROVIDERS: ADMIT Obstetrics & Gynecology Obstetrics; ATTEND Obstetrics & Gynecology
PROC: 0HQ9XZZ Repair Perineum Skin, External Approach (ICD-10-PCS; principal; 2018-05-26)
PROC: 10907ZC Drainage of Amniotic Fluid, Therapeutic from Products of Conception, Via Natural or Artificial Opening (ICD-10-PCS; principal; 2018-05-26)
PROC: 10E0XZZ Delivery of Products of Conception, External Approach (ICD-10-PCS; principal; 2018-05-26)
DX: O77.0 Labor and delivery complicated by meconium in amniotic fluid (principal); Z37.0 Single live birth; Z3A.39 39 weeks gestation of pregnancy; Z79.899 Other long term (current) drug therapy; Z83.3 Family history of diabetes mellitus; O70.0 First degree perineal laceration during delivery; Z86.14 Personal history of Methicillin resistant Staphylococcus aureus infection
CPT/HCPCS: 83036; 85025; 85461; 86850; 86870; 86880; 86900; 86901; 88307

== ENCOUNTER 2019-02-07 14:23 | Outpatient (CLI) | payer BC ==
[2019-02-07 15:45] VITALS: BP 132/82; PULSE 79; RESP 18; TEMP 97.7
--- NOTE | 2019-02-25 09:21 | P.MSEPDOC ---
Presenting Problems - Arrival Data Date of Arrival on Unit: 02/07/19 Time of Arrival on Unit: 15:35 Mode of Transport: Ambulatory - Complaint OB-Reason for Admission/Chief Complaint: Other Comment: dizziness, high BP at home, ongoing vaginal pressure Medical History - Information : 3 Para: 2 Term: 2 : 0 Abortions: Spontaneous or Elective: 0 Number of Living Children: 2 - Gestational Age Gestational Age by TREVER (wks/days): 27 Weeks and 2 Days Review of Systems - Review of Systems Constitutional: No problems Breast: No problems ENT: No problems Cardiovascular: No problems Respiratory: No problems Gastrointestinal: No problems Genitourinary: No problems Musculoskeletal: No problems Neurological: No problems Skin: No problems Vital Signs - Temperature Temperature: 97.7 F Temperature Source: Temporal Artery Scan - Pulse Right Sitting Brachial Pulse Rate: 79 Pulse Assessment Method: Automatic Cuff - Respirations Respiratory Rate: 18 Oxygen Delivery Method: Room Air O2 Sat by Pulse Oximetry: 98 - Blood Pressure Right Arm Sitting Blood Pressure: 132/82 Blood Pressure Mean: 98 Blood Pressure Source: Automatic Cuff Medical Screen Scoring (Pre) - Cervical Exam Dilation: 0 cm = 0 - Uterine Contractions Frequency: N/A Duration: N/A Intensity: N/A - Maternal Vital Signs Maternal Temperature: N/A Maternal Blood Pressure: N/A Signs of Preeclampsia: N/A Maternal Respirations: N/A - Pain Assessment Pain Scale Used: Numeric (1 - 10) Pain Intensity: 0 Pain Management Goal: 3 - Assessment Baseline FHR: 135 Heart Rate - NICHD Category: Category I (Normal) = 0 Position: N/A Station: N/A - Total Score Total Score (Pre): 0 - Level of Risk Level of Risk: Low (0-5) Physician Notification (Pre) - Physician Notified Physician Notified Date: 02/07/19 Physician Notified Time: 16:35 Physician/Practitioner Notifed:: dr Moralez Spoke With: dr Moralez New Order Received: Yes - Notification Comment Comment: dc home after sterile vaginal exam (closed) and pt to follow up in the office within one week Disposition - Disposition OB Disposition: Physician follow up in office, Discharge to home Discharge Date: 02/07/19 Discharge Time: 15:45 I agree with the RN Medical Screening Exam: Yes Risk & Benefit of care provided described in d/c instruction: Yes Diagnosis: FALSE LABOR BEFORE 37 COMPLETED WEEKS OF GEST, SECOND TRI
== END 2019-02-07 15:46 | disposition home or self-care (01) ==
LOC: FBPOP 14:23
PROVIDERS: ATTEND Obstetrics & Gynecology
DX: O47.02 False labor before 37 completed weeks of gestation, second trimester (principal)
CPT/HCPCS: 99213

== ENCOUNTER 2019-04-20 20:47 | Outpatient (CLI) | payer BC ==
[2019-04-20 22:22] VITALS: BP 139/82; PULSE 86; RESP 18; TEMP 96.9
--- NOTE | 2019-05-19 10:19 | P.MSEPDOC ---
Presenting Problems - Arrival Data Date of Arrival on Unit: 04/20/19 Time of Arrival on Unit: 20:47 Mode of Transport: Ambulatory - Complaint OB-Reason for Admission/Chief Complaint: Possible Onset of Labor Medical History - Information : 3 Para: 2 Term: 2 : 0 Abortions: Spontaneous or Elective: 0 Number of Living Children: 2 - Gestational Age Gestational Age by TREVER (wks/days): 37 Weeks and 4 Days - History Complications: GBS+ Review of Systems - Review of Systems Constitutional: No problems Breast: No problems ENT: No problems Cardiovascular: No problems Respiratory: No problems Gastrointestinal: No problems Genitourinary: No problems Musculoskeletal: No problems Neurological: No problems Skin: No problems Vital Signs - Temperature Temperature: 96.9 F Temperature Source: Temporal Artery Scan - Pulse Right Brachial Pulse Rate: 86 Pulse Assessment Method: Automatic Cuff - Respirations Respiratory Rate: 18 Oxygen Delivery Method: Room Air - Blood Pressure Right Arm Blood Pressure: 139/82 Blood Pressure Mean: 101 Blood Pressure Source: Automatic Cuff Medical Screen Scoring (Pre) - Cervical Exam Dilation: 1-3 cm = 1 Effacement: Exam Deferred Membranes: Intact - Uterine Contractions Frequency: > 5 minutes apart = 1 Duration: > 40 seconds = 2 Intensity: N/A - Maternal Vital Signs Maternal Temperature: N/A Maternal Blood Pressure: N/A Signs of Preeclampsia: N/A Maternal Respirations: N/A - Maternal Trauma Maternal Trauma: N/A - Assessment - Baby A Baseline FHR: 125 Heart Rate - NICHD Category: Category I (Normal) = 0 NST: Reactive Position: N/A Station: N/A - Total Score - Baby A Total Score - Baby A: 4 - Total Score - Baby B Total Score - Baby B: 4 - Total Score - Baby C Total Score - Baby C: 4 - Level of Risk - Baby A Level of Risk - Baby A: Low (0-5) - Level of Risk - Baby B Level of Risk - Baby B: Low (0-5) - Level of Risk - Baby C Level of Risk - Baby C: Low (0-5) Physician Notification (Pre) - Physician Notified Physician Notified Date: 04/20/19 Physician Notified Time: 21:58 Physician/Practitioner Notifed:: Dr. Guaman Spoke With: Dr. Guaman New Order Received: Yes - Notification Comment Comment: discharge pt home, follow up in office on Mon at scheduled appt Disposition - Disposition OB Disposition: Triage, Discharge to home, Written follow up instructions reviewed Discharge Date: 04/20/19 Discharge Time: 22:05 I agree with the RN Medical Screening Exam: Yes Risk & Benefit of care provided described in d/c instruction: Yes Diagnosis: FALSE LABOR AT OR AFTER 37 COMPLETED WEEKS OF GESTATION
== END 2019-04-20 22:05 | disposition home or self-care (01) ==
LOC: FBPOP 20:47
PROVIDERS: ATTEND Obstetrics & Gynecology
DX: O47.1 False labor at or after 37 completed weeks of gestation (principal); Z3A.37 37 weeks gestation of pregnancy
CPT/HCPCS: 59025; 99213

== ENCOUNTER 2019-04-30 05:52 | Inpatient (IN) | payer BC ==
[2019-04-30] MEDS ORDERED: CARBOPROST TROMETHAMINE 250 MCG/ML 1 ML AMP IM PRN (06:04)
[2019-04-30] MEDS ORDERED: METHYLERGONOVINE 0.2 MG/ML 1 ML AMP IM PRN (06:04)
[2019-04-30] MEDS ORDERED: LIDOCAINE 0.5% (PF) 5 MG/ML (50 ML SDV) SQ PRN (06:04)
[2019-04-30] MEDS ORDERED: PENICILLIN G POTASSIUM 5,000,000 UNIT in DEXTROSE 5% IN WATER 100 ML IVPB STA ×2 (06:04)
[2019-04-30] MEDS ORDERED: OXYTOCIN 10 UNIT/ML 1 ML VIAL IM PRN (06:04)
[2019-04-30] MEDS ORDERED: TERBUTALINE 1 MG/ML VIAL SQ PRN (06:04)
[2019-04-30] MEDS ORDERED: OXYTOCIN 30 UNITS/500 ML NS 30 UNIT in SALINE 1 500ML.BAG IV SCH (06:15)
[2019-04-30] MEDS: LACTATED RINGERS 1,000 ML IV SCH (06:21)
[2019-04-30 06:24] LABS: Basophils % (A) 1 %; Eosinophils # (A) 0.2 k/uL (0-0.7); Eosinophils % (A) 3 %; HCT 35.2 % (34.0-46.0); HGB 11.4 gm/dL (11.4-16.0); Lymphocytes # (A) 2.1 k/uL (1.0-4.8); Lymphocytes % (A) 32 %; MCHC 32.3 g/dL (31.0-37.0); MCV 83.6 fL (80.0-100.0); Mean Platelet Volume 7.6; Monocytes # (A) 0.5 k/uL (0-1.0); Monocytes % (A) 8 %; Neutrophils # (A) 3.4 k/uL (1.3-7.7); Neutrophils % (A) 53 %; Platelet Count 198 k/uL (150-450); RBC 4.21 m/uL (3.80-5.40); RDW 15.5 % (11.5-15.5); WBC 6.4 k/uL (3.8-10.6)
[2019-04-30] MEDS ORDERED: BUTORPHANOL 1 MG/ML 1 ML VIAL IV PRN (07:10)
--- NOTE | 2019-04-30 07:21 | P.HPOB ---
History of Present Illness H&P Date: 04/30/19 Chief Complaint: Here for elective induction of labor This is a 28-year-old white female 3 para 2002 EDC 05/07/2019 at 39 weeks gestation. Patient presents today for induction of labor with favorable multiparous cervix. Fetus is been active throughout the . She denies vaginal bleeding or fluid leakage. Obstetric history significant for blood type O-, rubella status immune. VDRL testing, HIV testing, gonorrhea and chlamydia cultures, hepatitis B surface antigen all negative. Positive group B strep status. One-hour Glucola 129. Social history is significant for nonsmoker, no alcohol or drug use, patient is and has good family support. Family history significant for asthma, hypertension, diabetes, lupus, leukemia, melanoma, fibromyalgia, endometriosis. Past medical history is significant for asthma in childhood, no issues as adult. Also positive for endometriosis. Past surgical history appendectomy 2011, surgery of the left elbow 2, endometriosis surgery 5, left foot surgery as well as right foot surgery. Current medications Lexapro 10 mg daily, vitamin daily. ALLERGIES none known. On exam this is a pleasant white female who is 5 foot 5 inches, 169 pounds, vital signs are stable and she is afebrile. The general physical exam is within normal limits. The extremities reveal no edema. The cervix is 3 cm dilated, 60-70% effaced, -2 station, vertex presentation. Artificial amniorrhexis reveals clear fluid. heart rate is consistent with reactive NST, baseline 140s. Contractions are occurring every 3-5 minutes apart of mild intensity. Impression: 39 week intrauterine , here for elective induction of labor, all signs reassuring. Plan: Oxytocin per hospital protocol. Close maternal and surveillance. Penicillin G per protocol, first unit already infused. Anticipate normal sp ontaneous vaginal delivery. Analgesic options reviewed with the patient. Review of Systems Constitutional: Reports as per HPI Past Medical History Past Medical History: Asthma Additional Past Medical History / Comment(s): Endometriosis History of Any Multi-Drug Resistant Organisms: MRSA Date of last positivie culture/infection: 2006 MDRO Source:: nose Additional Past Surgical History / Comment(s): ankle surgery, lap surgery for endomitritis, elbow surgery, appendectomy Past Anesthesia/Blood Transfusion Reactions: No Reported Reaction Smoking Status: Never smoker - Past Family History Mother Family Medical History: Diabetes Mellitus Medications and Allergies Home Medications Medication Instructions Recorded Confirmed Type Pnv,Calcium 72/Iron/Folic Acid 1 tab PO DAILY 05/19/17 04/30/19 History [ Plus Tablet] Escitalopram [Lexapro] 10 mg PO DAILY 04/23/18 04/30/19 History Allergies Allergy/AdvReac Type Severity Reaction Status Date / Time No Known Allergies Allergy Verified 04/20/19 20:49 Exam Intake and Output 04/29/19 04/30/19 04/30/19 22:59 06:59 14:59 Other: Weight 76.657 kg See dictation under HPI please Results Result Diagrams: 04/30/19 06:00 Assessment and Plan Assessment: 39 week intrauterine , here for elective induction of labor. Positive group B strep cultures, first dose of penicillin James infused. Plan: Continue oxytocin per protocol. Close maternal and surveillance. Analgesic options have been reviewed. Anticipate normal spontaneous vaginal delivery. Time with Patient: Less than 30
[2019-04-30 07:39] VITALS: BMI 28.0
[2019-04-30] MEDS: PENICILLIN G POTASSIUM 2,500,000 UNIT in DEXTROSE 5% IN WATER 100 ML IVPB SCH ×2 (10:20)
[2019-04-30] MEDS ORDERED: LANOLIN CREAM 5 GM TUBE TOPICAL PRN (12:27)
[2019-04-30] MEDS ORDERED: diphenhydrAMINE 50 MG CAP PO PRN (12:27)
[2019-04-30] MEDS ORDERED: SIMETHICONE 80 MG CHEWABLE PO PRN (12:27)
[2019-04-30] MEDS ORDERED: ACETAMINOPHEN TAB 325 MG TAB PO PRN (12:27)
[2019-04-30] MEDS ORDERED: WITCH HAZEL 1 EACH MED..PAD TOPICAL PRN (12:27)
[2019-04-30] MEDS ORDERED: HYDROCORTISONE 2.5% RECTAL CREAM 30 GM TUBE RECTAL PRN (12:27)
[2019-04-30] MEDS ORDERED: diphenhydrAMINE ELIXIR 25 MG/10 ML CUP PO PRN (12:27)
[2019-04-30] MEDS ORDERED: diphenhydrAMINE 50 MG/ML 1 ML VIAL IVP PRN ×2 (12:27)
[2019-04-30] MEDS ORDERED: ZOLPIDEM 5 MG TAB PO PRN (12:27)
[2019-04-30] MEDS ORDERED: BENZOCAINE/MENTHOL SPRAY 1 GM/SPRAY AEROSOL TOPICAL PRN (12:27)
[2019-04-30] MEDS ORDERED: diphenhydrAMINE 25 MG CAP PO PRN (12:27)
--- NOTE | 2019-04-30 12:27 | P.PROBDLV ---
Vaginal Delivery Note - . Vaginal Delivery Note: This is a 28-year-old white female 3 para 2002 EDC 05/07/2019 at 39 weeks gestation. Patient presented for induction with favorable multiparous cervix. is remarkable for positive group B strep cultures, penicillin G receive 2. Artificial amniorrhexis revealed clear fluid. Please see dictated history and physical for details. Patient declining the option for epidural but did receive Stadol. She progressed well through the first stage of labor was judged to be completely dilated at 1203 hrs. Perineal body was prepped and draped in usual sterile fashion. Excellent maternal expulsive efforts were noted. 's head delivered occiput anterior and she restituted accordingly. There was no nuchal cord noted. The right or anterior shoulder was gently delivered from underneath the pubic symphysis at which time the oropharynx, nasopharynx, and external nares were all bulb suctioned. Patient was officially delivered of a liveborn female at 1210 hours. Umbilical cord was doubly clamped and ligated, she was handed to waiting nurses for evaluation where scores of 7 and 9 at one and 5 minutes respectively were given. Uterus is then massaged. Placenta delivers spontaneously, at 1213 hours, it is inspected and noted to be intact with trivascular cord. Inspection of the cervix, vagina, perineum, periurethral areas revealed a very small first-degree perineal laceration. This was injected with lidocaine and repaired with a single mywdgg-ob-wdiil suture of 3-0 Vicryl. Fundus is firm and in the midline, symmetric and 18 week size upon completion of delivery. Total estimated blood loss 250 mL's. Patient and her family are allowed to begin the bonding experience in the LDR.
[2019-04-30] MEDS ORDERED: OXYTOCIN 20 UNITS/1000 ML NS 1,000 ML IV SCH (12:30)
[2019-04-30] MEDS: IBUPROFEN 600 MG TAB PO PRN ×2 (12:52→18:40)
[2019-04-30] MEDS ORDERED: Rhogam IMMUNE GLOBULIN 1,500 UNIT/1 ML IM ONE (18:41)
[2019-05-01] MEDS: PENICILLIN G POTASSIUM 2,500,000 UNIT in DEXTROSE 5% IN WATER 100 ML IVPB SCH ×6 (00:57→01:00)
[2019-05-01] MEDS: LACTATED RINGERS 1,000 ML IV SCH ×2 (00:59→01:00)
[2019-05-01] MEDS: SENNOSIDES-DOCUSATE SODIUM 1 EACH TAB PO SCH ×2 (00:59→07:53)
--- NOTE | 2019-05-01 07:28 | P.DS ---
Providers Date of admission: 04/30/19 05:52 Expected date of discharge: 05/01/19 Attending physician: Charlotte Moralez Primary care physician: Stated None Hospital Course: This is a 28-year-old white female 3 para 2002 EDC 05/07/2019 at 39 weeks gestation. Patient presented for elective induction with favorable cervix. Fetus is been active throughout the . Blood type is O-, rubella status immune, group B strep cultures positive. Please see my dictated history and physical for details. Patient was admitted, penicillin G was given 2 doses. Oxytocin started and titrated. Patient went on to deliver swiftly a liveborn female infant with scores of 7 and 9 at one and 5 minutes respectively. She had a small first-degree perineal laceration easily repaired, estimated blood loss of 250 mL's. Infant weighed 7 lbs. 6 oz. or 3355 g. Please see my dictated delivery note for details. This morning the patient is doing well. She is voiding, ambulating and passing flatus without difficulty. Vital signs are stable and she is afebrile. Lochia rubra is moderate, no large clots. Pain is well-controlled. Breasts are not engorged. is doing well. Patient is judged to be in very good condition for discharge home. She will follow-up with me in the office in 6 weeks. I have reminded her no intercourse, tampons or douching. She will use [id number] ibuprofen, Advil or Aleve as needed for pain. She will stay on her vitamin daily. I reminded her to call me with any fevers shakes or chills, foul smelling or copious lochia, with the passage of large blood clots, with any pain not all eviated by [id number] products, or indeed with any concerns. Patient Condition at Discharge: Good Plan - Discharge Summary Discharge Rx Participant: No New Discharge Prescriptions: No Action Pnv,Calcium 72/Iron/Folic Acid [ Plus Tablet] 1 tab PO DAILY Escitalopram [Lexapro] 10 mg PO DAILY Discharge Medication List Pnv,Calcium 72/Iron/Folic Acid [ Plus Tablet] 1 tab PO DAILY 05/19/17 [History] Escitalopram [Lexapro] 10 mg PO DAILY 04/23/18 [History] Follow up Appointment(s)/Referral(s): Charlotte Moralez MD [STAFF PHYSICIAN] - 6 Weeks
[2019-05-01] MEDS: IBUPROFEN 600 MG TAB PO PRN (07:53)
[2019-05-01 08:19] VITALS: BP 124/73; PULSE 82; RESP 18; TEMP 98.1
== END 2019-05-01 13:45 | disposition home or self-care (01) | DRG 807 ==
LOC: 4FBP 05:52
PROVIDERS: ADMIT Obstetrics & Gynecology; ATTEND Obstetrics & Gynecology
PROC: 10E0XZZ Delivery of Products of Conception, External Approach (ICD-10-PCS; principal; 2019-04-30)
PROC: 0HQ9XZZ Repair Perineum Skin, External Approach (ICD-10-PCS; 2019-04-30)
PROC: 10907ZC Drainage of Amniotic Fluid, Therapeutic from Products of Conception, Via Natural or Artificial Opening (ICD-10-PCS; 2019-04-30)
PROC: 3E033VJ Introduction of Other Hormone into Peripheral Vein, Percutaneous Approach (ICD-10-PCS; 2019-04-30)
DX: O99.824 Streptococcus B carrier state complicating childbirth (principal); Z37.0 Single live birth; O70.0 First degree perineal laceration during delivery; Z3A.39 39 weeks gestation of pregnancy; Z90.49 Acquired absence of other specified parts of digestive tract; Z87.09 Personal history of other diseases of the respiratory system; Z79.899 Other long term (current) drug therapy; Z86.14 Personal history of Methicillin resistant Staphylococcus aureus infection; Z80.6 Family history of leukemia; Z80.8 Family history of malignant neoplasm of other organs or systems; Z82.49 Family history of ischemic heart disease and other diseases of the circulatory system; Z82.5 Family history of asthma and other chronic lower respiratory diseases; Z83.3 Family history of diabetes mellitus; Z82.69 Family history of other diseases of the musculoskeletal system and connective tissue
CPT/HCPCS: 85025; 85461; 86850; 86870; 86880; 86900; 86901